=== PATIENT | female | born 1980 | race Caucasian/White ===

== ENCOUNTER 2022-10-15 08:28 | Day surgery (SDC) | payer MEDICAID ==
[~2022-10-15] VITALS: Ht 162.6 cm; Wt 99.8 kg
[2022-10-15 08:18] LABS: HCG,QUAL RESULT NEGATIVE (NEGATIVE)
[2022-10-15] MEDS ORDERED: fentaNYL CITRATE/PF 100 MCG/2 ML AMP ONE (09:02)
[2022-10-15] MEDS ORDERED: MIDAZOLAM HCL 5 MG/5 ML VIAL ONE (09:02)
[2022-10-15 10:48] VITALS: BP_SYST 140
== END 2022-10-15 10:40 | disposition home or self-care (01) ==
LOC: SDS 08:28 → SMU 08:29 → SDS 10:40
PROVIDERS: ATTEND Internal Medicine
DX: R10.32 Left lower quadrant pain (principal); K57.80 Diverticulitis of intestine, part unspecified, with perforation and abscess without bleeding; Z93.3 Colostomy status; Z90.49 Acquired absence of other specified parts of digestive tract; J45.909 Unspecified asthma, uncomplicated; Z79.899 Other long term (current) drug therapy; Z20.822 Contact with and (suspected) exposure to COVID-19
CPT/HCPCS: 44388; 45330; 87426; 84703; 36415; 99152; G0378; J2250; J3010